=== PATIENT | female | born 1980 | race Caucasian/White ===

== ENCOUNTER 2016-10-21 17:34 | Emergency (ER) | payer MEDICAID ==
[~2016-10-21] VITALS: Ht 160 cm; Wt 69.0 kg
[2016-10-21 17:38] VITALS: Ht 160 cm; Wt 69.0 kg
--- NOTE | 2016-10-21 20:01 | RADRPT ---
PROCEDURE: XR Cervical Spine. CLINICAL INDICATION: Neck pain. Right hand numbness TECHNIQUE: AP, lateral, and open mouth views of the cervical spine were obtained. COMPARISON: None FINDINGS: The cervical lordosis is maintained. The vertebral body and disk space heights are normal. No acut e fracture or subluxation is seen. The atlantoaxial joint, odontoid process, and lateral masses are intact. No prevertebral soft tissue abnormality is seen. IMPRESSION: Unremarkable cervical spine series. RPTAT: HPNM Physician Isa Date Time Electronically viewed and signed by Physician Isa on 10/21/2016 20:00 /
[2016-10-21] MEDS ORDERED: NAPR-260 PO (20:09)
[2016-10-21 20:17] VITALS: BP 138/80; PULSE 98; RESP 18; TEMP 98.8
--- NOTE | 2016-10-21 21:42 | ERD ---
ER Documentation Chief Complaint Date/Time DATE: 10/21/16 TIME: 21:38 Chief Complaint NUMBNESS TO RT HAND X 2 DAYS HPI 36 year old female comes in with numbness to her right thumb and right index fingers x 2 days, and pain in her left arm. She states she is right hand dominant but denies trauma. She reports some intermittent bilateral neck pain. No weakness. Denies neck trauma. ROS All systems reviewed and are negative except as per history of present illness. Medications Home Meds Active Scripts Naproxen* (Naprosyn*) 500 Mg Tablet, 500 MG PO BID Y for PAIN AND/OR INFLAMMATION, #30 TAB Prov:WILL PLEITEZ PA-C 10/21/16 PMhx/Soc Medical and Surgical Hx: pt denies Surgical Hx Hx Alcohol Use: No Hx Substance Use: No Hx Tobacco Use: No Smoking Status: Never smoker Physical Exam Vitals Vital Signs Date Time Temp Pulse Resp B/P Pulse Ox O2 Delivery O2 Flow Rate FiO2 10/21/16 20:17 98.8 98 18 138/80 100 Room Air 10/21/16 17:38 98.1 87 18 143/81 100 Physical Exam General: Well-developed, well-nourished. The patient appears in no acute distress. HEENT: Head is normocephalic, atraumatic. No scleral icterus. Neck: Supple. Nontender. No midline tenderness. Lungs: Clear to auscultation. Normal air movement. Heart: Regular rate and rhythm. S1 and S2 are normal. No murmurs, gallops, or rubs. Abdomen: Nondistended. Extremities: Radian, ulnar, median nerves intact bilaterally. Oil Deliverer strength 5 out of 5 bilaterally. Radial pulses 2+ bilaterally. Neurologic: Alert and oriented 3. No focal deficits. Skin: Normal turgor. No rash or lesions. Results 24 hrs PROCEDURE: XR Cervical Spine. CLINICAL INDICATION: Neck pain. Right hand numbness TECHNIQUE: AP, lateral, and open mouth views of the cervical spine were obtained. COMPARISON: None FINDINGS: The cervical lordosis is maintained. The vertebral body and disk space heights are normal. No acute fracture or subluxation is seen. The atlantoaxial joint, odontoid process, and lateral masses are intact. No prevertebral soft tissue abnormality is seen. IMPRESSION: Unremarkable cervical spine series. RPTAT: HPNM Physician Isa Date Time Electronically viewed and signed by Jeferson Bolton Physician on 10/21/2016 20 :00 / Procedures/MDM MDM: 36-year-old female comes in with numbness to her right hand, as well as pain in the left arm associated with neck pain for the past 2 days. Symptoms appear to be cervical radiculopathy related, there is no evidence of neuropraxia , cellulitis, DVT, infectious process, transverse myelitis. X-rays are unremarkable. Departure Diagnosis: Primary Impression: Cervical radiculopathy Condition: Good Patient Instructions: Radiculopathy, Cervical Additional Instructions: Llame al doctor MAANA y enmanuel anshul PAULETTE PARA DENTRO DE 1-2 CARRION.Dgale a la secretaria que nosotros le instruimos hacer esta paulette.Avise o llame si veras condicin se empeora antes de la paulette. Regresa aqui si peor o no mejor. WILL PLEITEZ PA-C Oct 21, 2016 21:42
== END 2016-10-21 20:18 | disposition home or self-care (01) ==
LOC: FTE 17:34
DX: M54.12 Radiculopathy, cervical region (principal)
CPT/HCPCS: 72040; Z7502

== ENCOUNTER 2018-02-27 23:05 | Emergency (ER) | END 2018-02-28 03:05 | disposition home or self-care (01) ==